=== PATIENT | male | born 1955 | race Caucasian/White ===

== ENCOUNTER 2019-06-18 14:52 | Inpatient (IN) | payer MEDICARE ==
[~2019-06-18] VITALS: Ht 185.4 cm; Wt 91.2 kg
[2019-06-18] MEDS ORDERED: INSU100V SQ (15:13)
[2019-06-18] MEDS ORDERED: SENN-175 PO (15:13)
[2019-06-18] MEDS ORDERED: ONDA4TAB5 PO (15:13)
[2019-06-18] MEDS ORDERED: DOCU-141 PO (15:13)
[2019-06-18] MEDS ORDERED: MAG30ORA PO (15:13)
[2019-06-18] MEDS ORDERED: ACET-868 PO (15:13)
[2019-06-18] MEDS ORDERED: RISP2TAB5 PO (15:13)
[2019-06-18] MEDS ORDERED: ZOLP5TAB2 PO (15:13)
[2019-06-18] MEDS ORDERED: HYDR-4384 PO (15:13)
[2019-06-18] MEDS ORDERED: ALBU8.5H8 IH (15:13)
[2019-06-18] MEDS ORDERED: GLUC1KIT IJ (15:13)
[2019-06-18 15:30] VITALS: BP 113/83
[2019-06-18] MEDS ORDERED: MAGNESIUM HYDROXIDE 30 ML UDC PO PRN (15:30)
[2019-06-18] MEDS ORDERED: BLOOD SUGAR DIAGNOSTIC 1 EACH STRIP IN ONE (15:30)
[2019-06-18] MEDS ORDERED: MAG HYDROX/AL HYDROX/SIMETH 30 ML UDC PO PRN ×2 (15:30→22:00)
[2019-06-18] MEDS ORDERED: ACETAMINOPHEN 325 MG TABLET PO PRN ×2 (15:30→22:00)
[2019-06-18 17:08] VITALS: BP 114/64
--- NOTE | 2019-06-18 17:40 | NUR ---
GPS/RN-NOTES ADMITTED 63 YEARS OLD MALE PATIENT FROM [facility]. DR. MARI ( PSYCHIATRIST) MADE AWARE WITH ORDERS AND SALAZAR RODRIGUEZ MADE AWARE OF THE ADMISSION. PATIENT ON 5150 HOLD FOR DTS/DTO. UPON FACE TO FACE ASSESSMENT, PATIENT A/O X 1-2 AMBULATORY WITH STEADY GAIT. GUARDED NOTED WITH EPISODE OF TALKING TO SELF WITH LOUD VOICE .HOLD WAS VERIFIED WITH THE PATIENT WITH UNDERSTANDING. PATIENT'S RIGHT WAS REVIEWED WITH THE PATIENT, AND BOOKLET WAS GIVEN TO THE PATIENT. FULL BODY ASSESSMENT, CONTRABAND AND MRSA SWAB DONE. PATIENT WAS ORIENTED IN THE UNIT AND UNIT POLICIES. PATIENT'S SISTER JANIE MOSES ([phone]) MADE AWARE OF THE ADMISSION. PATIENT REFUSED NOT SIGN ADMISSION PAPERS.
[2019-06-18 19:40] VITALS: BP 130/79
[2019-06-18] MEDS ORDERED: SENNOSIDES 8.6 MG TABLET PO PRN (22:00)
[2019-06-18] MEDS ORDERED: ALBUTEROL FS 2.5 MG/3 ML VIAL.NEB NEB PRN (22:00)
[2019-06-18] MEDS ORDERED: HYDROCODONE/APAP 5/325MG 1 EACH TABLET PO PRN (22:00)
[2019-06-18] MEDS ORDERED: ONDANSETRON 4 MG TAB.RAPDIS SL PRN (22:00)
[2019-06-18] MEDS ORDERED: DEXTROSE 50%-WATER 50 ML DISP.SYRIN IV PRN (22:00)
[2019-06-18] MEDS: BLOOD SUGAR DIAGNOSTIC 1 EACH STRIP IN SCH (22:11)
[2019-06-19 07:43] LABS: ALBUMIN 2.3 g/dL (3.4-5.0); BILIRUBIN,TOTAL 0.2 mg/dL (0.2-1.0); CALCIUM, SERUM 8.2 mg/dL (8.5-10.1); CREATININE 0.9 mg/dL (0.6-1.3); POTASSIUM 3.9 mmol/L (3.5-5.1)
[2019-06-19 08:00] VITALS: BP 151/90
[2019-06-19] MEDS: BLOOD SUGAR DIAGNOSTIC 1 EACH STRIP IN SCH ×4 (08:03→22:08)
[2019-06-19] MEDS: DOCUSATE SODIUM 100 MG CAPSULE PO SCH ×2 (08:45→16:09)
[2019-06-19] MEDS: risperiDONE 1 MG TABLET PO SCH ×2 (11:32→21:17)
[2019-06-19 11:59] LABS: APPEARANCE,URINE CLEAR (CLEAR); BILIRUBIN,URINE NEGATIVE (NEGATIVE); BLOOD, URINE NEGATIVE Ery/uL (NEGATIVE); COLOR,URINE YELLOW (YELLOW); KETONES,URINE NEGATIVE (NEGATIVE); LEUKOCYTE ESTERASE ,URINE NEGATIVE (NEGATIVE); NITRITE, URINE NEGATIVE (NEGATIVE); PH,URINE 7.5 (5.0-8.0); PROTEIN,URINE NEGATIVE (NEGATIVE); UGLUCOSE NEGATIVE (NEGATIVE); UROBILINOGEN,URINE 0.2 EU/dL (0.2)
--- NOTE | 2019-06-19 15:36 | NUR ---
Group Note: Pt attended group therapy session on 06/19/19 at 2:30pm discussing conflict resolution techniques for while they are in the hospital and after discharge but was not engaged and did not participate due to cognitive impairment.
[2019-06-19 16:00] VITALS: BP 126/84
[2019-06-19 20:08] VITALS: BP 113/71
[2019-06-19] MEDS: INSULIN REGULAR, HUMAN 100 UNIT/ML 3 ML VIAL SQ PRN (21:43)
[2019-06-20 08:00] VITALS: BP 123/70
[2019-06-20] MEDS: BLOOD SUGAR DIAGNOSTIC 1 EACH STRIP IN SCH ×4 (08:09→21:05)
[2019-06-20] MEDS: DOCUSATE SODIUM 100 MG CAPSULE PO SCH ×2 (09:08→17:06)
[2019-06-20] MEDS: risperiDONE 1 MG TABLET PO SCH ×2 (09:08→21:05)
--- NOTE | 2019-06-20 09:18 | NUR ---
UR Note: CHRISTIANO faxed a clinical review to [facility] with attention to Hector to the fax number: [phone].
--- NOTE | 2019-06-20 15:56 | NUR ---
Group Note: Pt attended group therapy session on 06/20/19 at 2:30pm discussing goal setting for while they are in the hospital and after discharge but was not engaged and did not participate due to being asleep.
[2019-06-20 16:00] VITALS: BP 106/71
--- NOTE | 2019-06-20 16:52 | NUR ---
staying to self most of day in . no complaints offered.
[2019-06-20 20:00] VITALS: BP 143/82
[2019-06-21] MEDS: BLOOD SUGAR DIAGNOSTIC 1 EACH STRIP IN SCH ×4 (07:47→21:25)
[2019-06-21 08:00] VITALS: BP 141/71
[2019-06-21] MEDS: DOCUSATE SODIUM 100 MG CAPSULE PO SCH ×2 (08:31→16:17)
[2019-06-21] MEDS: risperiDONE 1 MG TABLET PO SCH ×2 (08:31→21:25)
--- NOTE | 2019-06-21 09:41 | NUR ---
UR Note: CHRISTIANO faxed a clinical review to [facility] with attention to Stacy Young to the fax number: [phone].
--- NOTE | 2019-06-21 11:14 | NUR ---
Initial discharge plan: Pt is currently homeless and states he has been staying at the [facility] [[address] [place] [address]] for �a couple of weeks.� Pt reports being evicted from his previous permanent residence, a [facility] located at [address] [place] [address]. [address], [place] [address], because he was late on his rent. Per pt, he might be able to stay with his sister Nita ([phone]) until he �is back on his feet.� However, pt is also open to exploring other placement options for discharge planning. SW will continue to collaborate with pt, pt family, and MD regarding appropriate discharge plans. SW will form a safe and proper discharge plan.
--- NOTE | 2019-06-21 11:15 | NUR ---
CHRISTIANO called pts emergency contact, pts sister Nita Moreno at [phone] to inform her of pts admission, but there was no answer. CHRISTIANO left voicemail with call back number. SW will try to contact pts sister again at a later time.
[2019-06-21] MEDS: LORAZEPAM 0.5 MG TABLET PO PRN (13:02)
--- NOTE | 2019-06-21 13:05 | NUR ---
GPS/RN-NOTES DURING THE BRIDGE CRANE OPERATOR BREAK,STAFF REPORTED PATIENT SCREAMING AND YELLING WITH LOUD VOICE IN THE DAY ROOM USING FOUL LANGUAGES. UPON FACE TO FACE ASSESSMENT WITH THE PATIENT STATED" I'M FINE", BUT PATIENT CONTINUE TALKING TO SELF. OFFERED ATIVAN AND AGREED. ATIVAN 1MG P.O GIVEN PRN ORDER. WILL CONT. MONITORING FOR SAFETY AND BEHAVIOR.
--- NOTE | 2019-06-21 14:23 | NUR ---
Pt's sister Nita ([phone]) called SW and stated that she is not able to actively participate in discharge planning for pt. She states that pt is not able to be discharged to her home because of his history of aggressive behavior. However, pts sister provided SW with a new emergency contact for pt, Yumiko , who was pt's roommate before pt became homeless. Per pts sister Nita, Yumiko is open to having pt return to live with her at discharge. SW will follow up with pts new contact, Yumiko, and continue working with pt, pt family, and MD for a safe and proper discharge.
--- NOTE | 2019-06-21 15:10 | NUR ---
GROUP NOTE: Pt attended group on 06/21/19 at 230PM discussing the topic of managing their mental health after discharge. S: "What I plan to do is get myself a psychiatrist that I actually see on a regular basis, that way I am doing what I am supposed to be doing, and take my medication regularly�. I am glad that I am here, because I know I need to be here to get myself back on track.� O: pt was calm and cooperative, pt appeared in a euthymic mood with congruent affect. A: Pt gained awareness of mental illness and expressed intense feelings of wanting to be compliant with medication when he is discharged in order to prevent a return admission to the unit. P: pt will continue milieu treatment and continue medication stabilization.
--- NOTE | 2019-06-21 15:32 | NUR ---
CHRISTIANO spoke with pts former roommate, Yumiko Montoya ([phone]), and she confirmed that pt is allowed to return to her shared residence at [address] [place] [address], [address], [place] [address], after discharge. Pts roommate Yumiko also states that she is available to steel pickler pt at discharge. CHRISTIANO will continue working with pt, pt family, and MD to form a safe and proper discharge plan.
[2019-06-21 16:00] VITALS: BP 123/78
[2019-06-21 20:33] VITALS: BP 108/74
[2019-06-21] MEDS: INSULIN REGULAR, HUMAN 100 UNIT/ML 3 ML VIAL SQ PRN (21:29)
[2019-06-22] MEDS: BLOOD SUGAR DIAGNOSTIC 1 EACH STRIP IN SCH ×4 (07:48→21:42)
[2019-06-22 08:00] VITALS: BP 124/75
[2019-06-22] MEDS: DOCUSATE SODIUM 100 MG CAPSULE PO SCH ×2 (08:37→16:31)
[2019-06-22] MEDS: risperiDONE 1 MG TABLET PO SCH ×2 (08:37→21:41)
--- NOTE | 2019-06-22 08:39 | NUR ---
UR Note: CHRISTIANO faxed a clinical review to [facility] with attention to Stacy Young to the fax number: [phone].
[2019-06-22 16:00] VITALS: BP 111/72
[2019-06-22 19:56] VITALS: BP 112/65
[2019-06-22] MEDS: ZOLPIDEM TARTRATE 5 MG TABLET PO PRN (21:41)
[2019-06-23] MEDS: BLOOD SUGAR DIAGNOSTIC 1 EACH STRIP IN SCH ×4 (07:45→22:01)
[2019-06-23 08:00] VITALS: BP 115/75
[2019-06-23] MEDS: DOCUSATE SODIUM 100 MG CAPSULE PO SCH ×2 (09:02→16:53)
[2019-06-23] MEDS: risperiDONE 1 MG TABLET PO SCH ×2 (09:02→21:54)
[2019-06-23 16:00] VITALS: BP 117/75
[2019-06-23] MEDS: INSULIN REGULAR, HUMAN 100 UNIT/ML 3 ML VIAL SQ PRN (17:01)
[2019-06-23 20:00] VITALS: BP_SYST 112; BP_SYST 126; BP_DIAS 76; BP_DIAS 83
[2019-06-23] MEDS: ZOLPIDEM TARTRATE 5 MG TABLET PO PRN (21:54)
[2019-06-24 08:00] VITALS: BP 92/57
[2019-06-24] MEDS: BLOOD SUGAR DIAGNOSTIC 1 EACH STRIP IN SCH ×4 (08:38→21:17)
[2019-06-24] MEDS: risperiDONE 1 MG TABLET PO SCH ×2 (08:39→21:17)
[2019-06-24] MEDS: DOCUSATE SODIUM 100 MG CAPSULE PO SCH ×2 (08:39→18:24)
[2019-06-24 16:00] VITALS: BP 111/70
[2019-06-24] MEDS: LORAZEPAM 0.5 MG TABLET PO PRN (18:24)
--- NOTE | 2019-06-24 18:24 | NUR ---
RN NOTES ADMINISTERED ATIVAN 1 MG PO PRN FOR ANXIETY, DELUSIONAL, YELLING PER PATIENT REQUEST, V/S TAKEN BP 111/70, P-56, R-18, CONTINUED MONITORING.
[2019-06-24 20:03] VITALS: BP 137/78
[2019-06-24] MEDS: INSULIN REGULAR, HUMAN 100 UNIT/ML 3 ML VIAL SQ PRN (21:23)
[2019-06-25] MEDS: ZOLPIDEM TARTRATE 5 MG TABLET PO PRN ×2 (01:19→21:30)
[2019-06-25] MEDS: LORAZEPAM 0.5 MG TABLET PO PRN ×2 (05:58→21:29)
[2019-06-25 08:00] VITALS: BP 120/81
[2019-06-25] MEDS: BLOOD SUGAR DIAGNOSTIC 1 EACH STRIP IN SCH ×4 (08:48→22:07)
[2019-06-25] MEDS: INSULIN REGULAR, HUMAN 100 UNIT/ML 3 ML VIAL SQ PRN (08:48)
[2019-06-25] MEDS: DOCUSATE SODIUM 100 MG CAPSULE PO SCH ×2 (09:18→16:15)
[2019-06-25] MEDS: risperiDONE 1 MG TABLET PO SCH ×2 (09:18→21:28)
--- NOTE | 2019-06-25 09:37 | NUR ---
UR Note: CHRISTIANO faxed a clinical review to [facility] with attention to Stacy Young to the fax number: [phone].
[2019-06-25 16:00] VITALS: BP 129/84
[2019-06-25 19:50] VITALS: BP 121/76
[2019-06-26 00:20] VITALS: BP 120/81
[2019-06-26] MEDS: BLOOD SUGAR DIAGNOSTIC 1 EACH STRIP IN SCH ×4 (07:30→22:32)
[2019-06-26 08:00] VITALS: BP 137/95
[2019-06-26] MEDS: DOCUSATE SODIUM 100 MG CAPSULE PO SCH ×2 (09:35→17:00)
[2019-06-26] MEDS: risperiDONE 1 MG TABLET PO SCH ×2 (09:35→21:37)
--- NOTE | 2019-06-26 11:01 | NUR ---
UR Note: CHRISTIANO faxed a clinical review to [facility] with attention to Stacy Young to the fax number: [phone].
--- NOTE | 2019-06-26 11:02 | NUR ---
SW called the pts former roommate, Yumiko Montoya ([phone]), and left a voicemail stating that the SW would like to discuss the pts discharge plan and asked for a call back whenever possible.
--- NOTE | 2019-06-26 15:25 | NUR ---
Yumiko Montoya ([phone]), pts friend, called the SW and stated that she will be picking the pt up at the time of his discharge and taking him home to live with her.
[2019-06-26 16:00] VITALS: BP 134/73
[2019-06-26] MEDS: LORAZEPAM 0.5 MG TABLET PO PRN (20:12)
[2019-06-26 21:30] VITALS: BP 107/57
[2019-06-26] MEDS: ZOLPIDEM TARTRATE 5 MG TABLET PO PRN (21:37)
[2019-06-27] MEDS: BLOOD SUGAR DIAGNOSTIC 1 EACH STRIP IN SCH ×4 (07:30→21:16)
[2019-06-27 08:00] VITALS: BP 105/61
--- NOTE | 2019-06-27 08:51 | NUR ---
UR Note: CHRISTIANO faxed a clinical review to [facility] with attention to Stacy Young to the fax number: [phone].
[2019-06-27 09:03] VITALS: BP 105/61
[2019-06-27] MEDS: DOCUSATE SODIUM 100 MG CAPSULE PO SCH ×2 (09:03→16:48)
[2019-06-27] MEDS: risperiDONE 1 MG TABLET PO SCH ×2 (09:03→21:14)
--- NOTE | 2019-06-27 13:28 | NUR ---
GROUP NOTE Goal: Patient will attend group being held today from 11AM-11:45AM in the activities room and participate and/or actively listen to peers and be respectful. Intervention: SW invited patient to attend group session with peers regarding their support system. SW respected patient�s self-determination and will continue to invite patient to group. Response: Patient declined to participate in today�s group drug abuse social worker session. Plan: Patient will be invited to attend next drug abuse social worker group session held.
[2019-06-27 16:00] VITALS: BP 124/76
[2019-06-27 20:04] VITALS: BP 90/66
[2019-06-28] MEDS: BLOOD SUGAR DIAGNOSTIC 1 EACH STRIP IN SCH ×4 (07:31→22:02)
[2019-06-28 08:00] VITALS: BP 100/58
[2019-06-28] MEDS: risperiDONE 1 MG TABLET PO SCH ×2 (08:33→21:35)
[2019-06-28] MEDS: DOCUSATE SODIUM 100 MG CAPSULE PO SCH ×2 (08:33→16:27)
--- NOTE | 2019-06-28 08:56 | NUR ---
UR Note: CHRISTIANO faxed a clinical review to [facility] with attention to Stacy Young to the fax number: [phone].
--- NOTE | 2019-06-28 09:44 | NUR ---
SW called the pts former roommate, Yumiko Montoya ([phone]), and left a voicemail stating that the pt is going to be discharged tomorrow and that the SW would like to coordinate the discharge plan as soon as possible.
--- NOTE | 2019-06-28 09:45 | NUR ---
UR Note: CHRISTIANO called Hector ([phone]) from [facility] and stated that the pt will need follow up appointments and he stated that he would send over the request and provide the SW with the appropriate information when it is available.
[2019-06-28 16:00] VITALS: BP 101/56
[2019-06-28 20:00] VITALS: BP 109/58
--- NOTE | 2019-06-28 22:15 | NUR ---
GPS RN NOTE: PATIENT BLOOD SUGAR LEVEL 95MG/DL, NO INSULIN NEEDED PER SLIDING SCALE. NO S/S OF HYPO/HYPERGLYCEMIA NOTED. SNACKS PROVIDED. WILL CONTINUE TO MONITOR.
[2019-06-29] MEDS: BLOOD SUGAR DIAGNOSTIC 1 EACH STRIP IN SCH ×2 (07:32→11:58)
[2019-06-29 08:00] VITALS: BP 117/77
--- NOTE | 2019-06-29 08:14 | NUR ---
SW called the pt's sister Nita ([phone]) and left her a voicemail stating that the pt is going to be discharged today and that the SW is having a difficult time contacting the pts roommate Yumiko and stated that the SW would like to discuss the pts discharge.
--- NOTE | 2019-06-29 08:14 | NUR ---
SW called the pts former roommate, Yumiko Montoya ([phone]), and left a voicemail stating that the pt is going to be discharged today and that the SW would like to coordinate the discharge plan as soon as possible.
[2019-06-29] MEDS: risperiDONE 1 MG TABLET PO SCH (08:46)
[2019-06-29] MEDS: DOCUSATE SODIUM 100 MG CAPSULE PO SCH (08:46)
--- NOTE | 2019-06-29 09:45 | NUR ---
gps job counselor: notes dr. marie and jose (s.w.) at bedside talking to pt and made aware re: d'c home today. awaiting for his sister or room mate to pick him up.
--- NOTE | 2019-06-29 10:16 | NUR ---
Yumiko Montoya ([phone]), pts friend, called the SW and stated that she will arrive around 3pm to pick the pt up. She provided the SW with the address as well.
--- NOTE | 2019-06-29 10:30 | NUR ---
gps machine operations supervisor: notes order received from dr. marie to discharge pt. pt aware.
--- NOTE | 2019-06-29 10:33 | NUR ---
gps nib assembler: notes marjorie ag (acnp) here and made aware re: d'c home today.
[2019-06-29] MEDS: INSULIN REGULAR, HUMAN 100 UNIT/ML 3 ML VIAL SQ PRN (11:58)
--- NOTE | 2019-06-29 12:00 | NUR ---
gps nursing unit manager: notes pt stable for discharge. denies si/hi and denies auditory/visual hallucinations. discharge instructions with prescriptions given and pt verbalized understanding. friend to pick him up at 1500. pt aware that all belongings/valuables and d'c papers to be given prior to discharge. will continue to monitor.
[2019-06-29] MEDS: LORAZEPAM 0.5 MG TABLET PO PRN (13:34)
--- NOTE | 2019-06-29 15:18 | NUR ---
Discharge Note: Pt was discharged to his friend�s house located at [address] [facility] [address] [address]; ([phone]). Pt was picked up by Yumiko ([phone]) around 3:30pm. Upon discharge, the pt appeared to be in a euthymic mood and presented with a calm affect. Pt denied both suicidal and homicidal ideation as well as auditory and visual hallucinations. Pt will be under the care of his psychiatrist, Dr. Lo, located at [address] [facility] [address], [place] [address]; ; and a fax was sent to: [phone]. Pt will be under the care of his accounting office manager, Dr. January Dorsey, located at [address] [facility] [address], [place] [address]; . [facility] Office on 07/03/19 at 11AM.
--- NOTE | 2019-06-29 15:43 | NUR ---
gps rn vascular: notes pt stable for discharge. denies si/hi at time of discharge. denies auditory/visual hallucinations prior to discharge. all valuables returned to pt and all d'c papers with prescriptions given to pt. tiffany (friend) waiting in her car with a dog and brought pt down via wheelchair accompanied by 2 staff. safely gotten to car and drove off.
== END 2019-06-29 15:40 | disposition home or self-care (01) | DRG 885 ==
LOC: GPS 14:52
PROVIDERS: ADMIT Psychiatry & Neurology Psychiatry; ATTEND Nurse Practitioner Acute Care
DX: F20.0 Paranoid schizophrenia (principal); F29 Unspecified psychosis not due to a substance or known physiological condition; E11.9 Type 2 diabetes mellitus without complications; J45.909 Unspecified asthma, uncomplicated; E66.9 Obesity, unspecified; Z59.0 Homelessness; Z68.26 Body mass index [BMI] 26.0-26.9, adult; F17.210 Nicotine dependence, cigarettes, uncomplicated; F10.20 Alcohol dependence, uncomplicated; F15.10 Other stimulant abuse, uncomplicated
CPT/HCPCS: 36415; 80053-TC; 80061-TC; 81000-TC; 82962-TC; 87081-TC; J1815

== ENCOUNTER 2021-11-27 06:13 | Emergency (ER) | payer MEDICARE ==
[~2021-11-27] VITALS: Ht 177.8 cm; Wt 75.3 kg
[~2021-11-27 06:13] MED LIST: ACET-868 PO; ALBU8.5H8 IH; DOCU-141 PO; GLUC1KIT IJ; HYDR-4384 PO; INSU100V SQ; MAG30ORA PO; ONDA4TAB5 PO; SENN-175 PO
--- NOTE | 2021-11-27 06:34 | NUR ---
PATIENT [id number] FROM THE STREETS FOR NOT LEAVING RALPHS AND CAUSING A SCENE. PATIENT NOT ANSWERING ANY QUESTIONS AND INSTEAD IS ONLY MUMBLING. PATIENT HAS NON LABORED BREATHING WAS PLACED IN BED 15.
[2021-11-27] MEDS ORDERED: HALOPERIDOL LACTATE INJ 5 MG/ML VIAL ONE (06:49)
[2021-11-27] MEDS ORDERED: diphenhydrAMINE HCL 50 MG/ML VIAL ONE (06:49)
--- NOTE | 2021-11-27 06:59 | NUR ---
COVID SWAB DONE AND SENT TO LAB
[2021-11-27] MEDS ORDERED: diphenhydrAMINE HCL 50 MG/ML VIAL IM ONE (07:00)
[2021-11-27] MEDS ORDERED: HALOPERIDOL LACTATE INJ 5 MG/ML VIAL IM ONE (07:00)
--- NOTE | 2021-11-27 08:29 | NUR ---
PT REFUSED TO BLOOD DRAW, ERMD AWARE.
[2021-11-27 11:21] LABS: BASOPHILS # (AUTO) 0.1 K/uL (0.0-0.2); BASOPHILS % (AUTO) 0.9 % (0.0-2.0); EOSINOPHILS % (AUTO) 1.5 % (0.0-6.0); HEMATOCRIT 27 % (39-51); HEMOGLOBIN 8.1 g/dL (13.5-17.5); LYMPHOCYTES # (AUTO) 1.1 K/uL (0.8-4.8); LYMPHOCYTES % (AUTO) 14.6 % (20.0-44.0); MEAN CORPUSCULAR HGB CONC 30 g/dl (31.0-36.0); MEAN CORPUSCULAR VOLUME 61 fL (80-96); MONOCYTES # (AUTO) 2.2 K/uL (0.1-1.30); MONOCYTES % (AUTO) 27.9 % (2.0-12.0); NEUTROPHILS # (AUTO) 4.3 K/uL (1.8-8.9); NEUTROPHILS % (AUTO) 55.1 % (43.0-81.0); PLATELET COUNT (AUTO) 296 K/uL (150-450); RED BLOOD CELL COUNT(AUTO) 4.44 MIL/uL (4.5-6.0); WHITE BLOOD COUNT (AUTO) 7.8 K/uL (4.3-11.0)
[2021-11-27 11:45] LABS: CALCIUM, SERUM 8.3 mg/dL (8.5-10.1); CARBON DIOXIDE 26 mmol/L (21-32); CHLORIDE 103 mmol/L (98-107); CREATININE 1.2 mg/dL (0.6-1.3); GLUCOSE 72 mg/dL (74-106); POTASSIUM 3.7 mmol/L (3.5-5.1); SODIUM SERUM 138 mmol/L (136-145); UREA NITROGEN, BLOOD 35 mg/dL (7-18)
[2021-11-27 11:51] LABS: ALANINE AMINOTRANSFERASE 26 U/L (12-78); ALBUMIN 3.1 g/dL (3.4-5.0); ALCOHOL, BLOOD < 3 mg/dL (0-0); ALKALINE PHOSPHATASE 70 U/L (46-116); ASPARTATE AMINOTRANSFERASE 33 U/L (15-37); BILIRUBIN,DIRECT 0.1 mg/dL (0.0-0.2); BILIRUBIN,TOTAL 0.3 mg/dL (0.2-1.0); TOTAL PROTEIN, SERUM 6.3 g/dL (6.4-8.2)
[2021-11-27 11:53] LABS: ACETAMINOPHEN 0 ug/ml (10-30)
[2021-11-27 17:41] VITALS: BP 137/85
[2021-11-27 19:47] LABS: BAND % (MANUAL) 2 % (0.0-5.0); EOSINOPHILS % (MANUAL) 1 % (0-4); LYMPHOCYTES % (MANUAL) 12 % (16-48); MONOCYTES % (MANUAL) 26 % (0-11.0); NEUTROPHILS % (MANUAL) 59 (42-76)
== END 2021-11-27 19:44 | disposition home or self-care (01) ==
LOC: ER 06:13
DX: F29 Unspecified psychosis not due to a substance or known physiological condition (principal); R94.31 Abnormal electrocardiogram [ECG] [EKG]; D64.9 Anemia, unspecified; Z20.822 Contact with and (suspected) exposure to COVID-19; Z59.01 Sheltered homelessness; I10 Essential (primary) hypertension; E11.9 Type 2 diabetes mellitus without complications; Z79.4 Long term (current) use of insulin; Z79.899 Other long term (current) drug therapy; F20.0 Paranoid schizophrenia; F15.10 Other stimulant abuse, uncomplicated
CPT/HCPCS: 36415; 80048; 80076; 80143; 80320; 84484; 85007; 85025; 87426; 93005; 96372 ×2; 99285; J1200; J1630; C9803; G0480

== ENCOUNTER 2021-12-03 15:40 | Emergency (ER) | payer MEDICARE ==
[~2021-12-03] VITALS: Ht 180.3 cm; Wt 82.6 kg
[2021-12-03 15:47] VITALS: BP 146/86
--- NOTE | 2021-12-03 15:47 | NUR ---
PT AKI GUADALUPE THE STREETS TO ED BED 15 PER EMS REPORT, BYSTANDER CALLED 911, PT ACTING BIZZARE AND IS IN POSSESSION OF POSSIBLE METH W/ A SMOKING PIPE. UPON ARRIVAL PT IS VERBALLY RESPONSIVE AND COOPERATIVE TO STAFF. DENIES ANY SI/HI. GOWNED. HALEY TORRES AT BEDSIDE. STABLE VITALS.
--- NOTE | 2021-12-03 15:50 | NUR ---
SECURITY CALLED FOR WANDING,EMS REPORTED THAT HE HAD "METH" WITH HIM
--- NOTE | 2021-12-03 16:33 | NUR ---
PT HAS NO DESIRE OF STAYING AT ED. REQUESTING TO BE DISCHARGED. AMBULATORY W/ STEADY GAIT. AAOX3. PT IS MEDICALLY CLEARED DISCHARGED IN STABLE CONDITION.
== END 2021-12-03 16:39 | disposition home or self-care (01) ==
LOC: ER 15:50
DX: F15.90 Other stimulant use, unspecified, uncomplicated (principal); I10 Essential (primary) hypertension; E11.9 Type 2 diabetes mellitus without complications; F17.200 Nicotine dependence, unspecified, uncomplicated

== ENCOUNTER 2021-12-06 00:36 | Emergency (ER) | payer MEDICARE ==
[~2021-12-06] VITALS: Ht 167.6 cm; Wt 72.6 kg
--- NOTE | 2021-12-06 00:45 | NUR ---
BIB [employer] FROM [employer] [address] C/O BIZARRE BEHAVIOR. PATIENT WAS COVERED IN URINE DURING TRIAGE. PT AO TO SELF, AND WAS UNCOOPERATIVE. BREATHING EVEN AND UNLABORED. PT SEEN AND EXAMINED BY DR SAM. PT ATTACHED TO MONITOR AND PULSE OX. WILL CONT TO MONITOR AND CARRY OUT MD HERRERA.
[2021-12-06] MEDS ORDERED: OLANZAPINE 10 MG VIAL IM ONE (01:12)
[2021-12-06] MEDS: OLANZAPINE 10 MG VIAL IM ONE (01:24)
--- NOTE | 2021-12-06 01:31 | NUR ---
IV LINE ESTABLISHED AT LAC 20G, BLOOD DRAWN AND SENT TO LAB
--- NOTE | 2021-12-06 01:54 | NUR ---
URINE COLLECTED, SENT TO LAB
[2021-12-06 02:08] LABS: BASOPHILS # (AUTO) 0.1 K/uL (0.0-0.2); BASOPHILS % (AUTO) 1.1 % (0.0-2.0); EOSINOPHILS % (AUTO) 0.7 % (0.0-6.0); HEMATOCRIT 29 % (39-51); HEMOGLOBIN 8.7 g/dL (13.5-17.5); LYMPHOCYTES # (AUTO) 0.9 K/uL (0.8-4.8); LYMPHOCYTES % (AUTO) 13.1 % (20.0-44.0); MEAN CORPUSCULAR HGB CONC 30 g/dl (31.0-36.0); MEAN CORPUSCULAR VOLUME 62 fL (80-96); MONOCYTES # (AUTO) 0.8 K/uL (0.1-1.30); MONOCYTES % (AUTO) 12.2 % (2.0-12.0); NEUTROPHILS # (AUTO) 4.8 K/uL (1.8-8.9); NEUTROPHILS % (AUTO) 72.9 % (43.0-81.0); PLATELET COUNT (AUTO) 427 K/uL (150-450); RED BLOOD CELL COUNT(AUTO) 4.67 MIL/uL (4.5-6.0); WHITE BLOOD COUNT (AUTO) 6.6 K/uL (4.3-11.0)
[2021-12-06 02:12] LABS: BILIRUBIN,URINE SMALL (NEGATIVE); COLOR,URINE YELLOW (YELLOW); LEUKOCYTE ESTERASE ,URINE NEGATIVE (NEGATIVE); NITRITE, URINE NEGATIVE (NEGATIVE); PH,URINE 5.5 (5.0-8.0); PROTEIN,URINE TRACE mg/dl (NEGATIVE); UGLUCOSE NEGATIVE (NEGATIVE); UROBILINOGEN,URINE 0.2 EU/dL (0.2)
[2021-12-06 02:26] LABS: CARBON DIOXIDE 27 mmol/L (21-32); CHLORIDE 104 mmol/L (98-107); CREATININE 1.5 mg/dL (0.6-1.3); GLUCOSE 91 mg/dL (74-106); POTASSIUM 4.2 mmol/L (3.5-5.1); SODIUM SERUM 140 mmol/L (136-145); UREA NITROGEN, BLOOD 38 mg/dL (7-18)
[2021-12-06 02:31] LABS: ALANINE AMINOTRANSFERASE 36 U/L (12-78); ALBUMIN 3.6 g/dL (3.4-5.0); ALCOHOL, BLOOD < 3 mg/dL (0-0); ALKALINE PHOSPHATASE 75 U/L (46-116); ASPARTATE AMINOTRANSFERASE 39 U/L (15-37); BILIRUBIN,DIRECT 0.2 mg/dL (0.0-0.2); BILIRUBIN,TOTAL 0.6 mg/dL (0.2-1.0); TOTAL PROTEIN, SERUM 7.3 g/dL (6.4-8.2)
[2021-12-06 02:37] LABS: ACETAMINOPHEN < 2 ug/ml (10-30)
[2021-12-06 02:42] LABS: BACTERIA,URINE None seen /HPF (None Seen); MUCUS,URINE Few /LPF (None Seen); RBC,URINE 0-2 /HPF (0-2); SQUAMOUS EPITHELIAL CELL,UR Few /HPF (None Seen); WBC,URINE 0-2 /HPF (0-3)
[2021-12-06 03:00] LABS: CREATINE KINASE, TOTAL 443 U/L (39-308)
[2021-12-06] MEDS: IV NS 0.9% 1,000 ML IV ONE (03:03)
[2021-12-06 04:27] LABS: LYMPHOCYTES % (MANUAL) 10 % (16-48); MONOCYTES % (MANUAL) 9 % (0-11.0); NEUTROPHILS % (MANUAL) 81 (42-76)
[2021-12-06] MEDS ORDERED: LORAZEPAM INJ 2 MG/ML VIAL ONE (06:50)
[2021-12-06] MEDS: LORAZEPAM INJ 2 MG/ML VIAL IM ONE (06:59)
--- NOTE | 2021-12-06 09:23 | NUR ---
COVID SWAB DONE AND SENT TO LAB
--- NOTE | 2021-12-06 10:40 | NUR ---
PLEASE CALL [facility] [phone] HIDI IS CHARGE TO GIVE REPORT.
--- NOTE | 2021-12-06 12:05 | NUR ---
[facility] CALLED FOR TRANSPORT WITH ETA OF 45 MINS.
--- NOTE | 2021-12-06 12:10 | NUR ---
REPORT GIVEN TO DEIDRA FOR KATHRYN
[2021-12-06 12:30] VITALS: BP 123/70
--- NOTE | 2021-12-06 12:40 | NUR ---
REPORT GIVEN TO [facility] PERSON FOR TRANSPORT TO [facility]
--- NOTE | 2021-12-06 12:43 | NUR ---
ACCEPTING WILL BE DR. LUIS MARTINEZ AT [phone]
--- NOTE | 2021-12-06 12:45 | NUR ---
REPORT GIVEN TO AMBULANCE STAFF. THE PATIENT IS DISCHARGED FROM ER IN STABLE CONDITION GOING TO [facility] [facility] .
== END 2021-12-06 12:51 | disposition short-term general hospital (02) ==
LOC: ER 00:42
DX: F15.129 Other stimulant abuse with intoxication, unspecified (principal); Z20.822 Contact with and (suspected) exposure to COVID-19; R40.4 Transient alteration of awareness; I10 Essential (primary) hypertension; F17.200 Nicotine dependence, unspecified, uncomplicated; Z60.2 Problems related to living alone
CPT/HCPCS: 36415; 70450-TC; 71045-TC; 80048-TC; 80076-TC; 81001; 82550-TC; 82553; 83735-TC; 85025-TC; C9803; G0480; J2060; J3490; J7030